=== PATIENT | female | born 1945 | race Caucasian/White ===

== ENCOUNTER 2023-05-21 12:47 | Inpatient (IN) | payer MEDICARE, OTHER ==
[~2023-05-21] VITALS: Ht 162.6 cm; Wt 76.7 kg
[2023-05-21] MEDS ORDERED: AVAPRO (13:20)
[2023-05-21] MEDS ORDERED: AMLODIPINE (13:20)
[2023-05-21 13:50] LABS: BASOPHILS # (AUTO) 0.1 K/UL (0.0-0.2); BASOPHILS % (AUTO) 0.5 % (0.0-2.0); EOSINOPHILS % (AUTO) 0.1 % (0.0-7.0); HEMATOCRIT 37.3 % (31.2-41.9); HEMOGLOBIN 11.7 g/dL (10.9-14.3); LYMPHOCYTES # (AUTO) 0.9 K/uL (0.8-4.8); LYMPHOCYTES % (AUTO) 8.4 % (20.5-51.5); MEAN CORPUSCULAR HEMOGLOBIN 20.3 uug (24.7-32.8); MEAN CORPUSCULAR HGB CONC 31 g/dL (32.3-35.6); MEAN CORPUSCULAR VOLUME 64.6 fL (75.5-95.3); MONOCYTES # (AUTO) 0.9 K/uL (0.1-1.30); MONOCYTES % (AUTO) 9.1 % (0.0-11.0); NEUTROPHILS # (AUTO) 8.5 K/uL (1.8-8.9); NEUTROPHILS % (AUTO) 81.9 % (38.5-71.5); PLATELET COUNT (AUTO) 223 K/uL (179-408); RED BLOOD CELL COUNT(AUTO) 5.78 MIL/uL (3.63-4.92); RED CELL DISTRIBUTION WIDTH 15.6 % (12.3-17.7); WHITE BLOOD COUNT (AUTO) 10.4 K/uL (3.8-11.8)
[2023-05-21 14:11] LABS: DIFFERENTIAL COMMENT 1
[2023-05-21 14:19] LABS: CALCIUM 9.6 mg/dL (8.5-10.1); CARBON DIOXIDE 22 mmol/L (21-32); CHLORIDE 102 mmol/L (98-107); CREATININE 0.8 mg/dL (0.6-1.3); GLUCOSE 102 mg/dL (74-106); POTASSIUM 3.8 mmol/L (3.5-5.1); SODIUM SERUM 137 mmol/L (136-145); UREA NITROGEN, BLOOD 15 mg/dL (7-18)
[2023-05-21 14:33] LABS: ALANINE AMINOTRANSFERASE 13 U/L (14-59); ALKALINE PHOSPHATASE 55 U/L (50-136); ASPARTATE AMINOTRANSFERASE 9 U/L (15-37); BILIRUBIN,DIRECT 0.2 mg/dL (0.0-0.2); BILIRUBIN,TOTAL 0.5 mg/dL (0.2-1.0); NT-PRO BNP 163 pg/mL (0-125); TOTAL PROTEIN, SERUM 8.4 g/dL (6.4-8.2)
[2023-05-21] MEDS ORDERED: ACETAMINOPHEN 325 MG TABLET PO ONE (15:30)
[2023-05-21] MEDS ORDERED: methylPREDNISolone SOD SUCC 125 MG/2 ML VIAL IV ONE (15:30)
[2023-05-21] MEDS ORDERED: methylPREDNISolone SOD SUCC 125 MG/2 ML VIAL ONE (15:40)
[2023-05-21] MEDS ORDERED: ACETAMINOPHEN 325 MG TABLET ONE (15:40)
[2023-05-21 16:59] LABS: *BILIRUBIN,URIN NEGATIVE (NEGATIVE); *CLARITY,URINE CLEAR (CLEAR); *COLOR,URINE YELLOW (YELLOW); *KETONES,URINE NEGATIVE (NEGATIVE); *PROTEIN,URINE 1+ (NEGATIVE); *UROBILINOGEN,URINE 0.2 E.U./dl (NORMAL); LEUKOCYTE ESTERASE ,URINE 1+ (NEGATIVE); NITRITE, URINE POSITIVE (NEGATIVE); UGLUCOSE NEGATIVE (NEGATIVE)
[2023-05-21 17:03] LABS: *BLOOD, URINE NEGATIVE (NEGATIVE)
[2023-05-21 17:04] LABS: BACTERIA,URINE FEW /HPF (NONE SEEN); RBC,URINE 0-3 /HPF (0-3)
[2023-05-21] MEDS ORDERED: ALBUTEROL SULFATE 2.5 MG/ 0.5 ML NEBU NEB PRN (19:30)
[2023-05-21] MEDS ORDERED: ONDANSETRON 4 MG/2 ML VIAL IV PRN (19:30)
[2023-05-21] MEDS ORDERED: IPRATROPIUM BROMIDE 0.5 MG/2.5 ML NEBU NEB PRN (19:30)
[2023-05-21] MEDS ORDERED: hydrALAZINE HCL 25 MG TABLET PO PRN (19:30)
[2023-05-21] MEDS ORDERED: CEFTRIAXONE /D5W 50ML IVPB **ER PYXIS IV ONE (20:16)
[2023-05-21] MEDS: CEFTRIAXONE 1 G in IV DEXTROSE 5% 50 ML IV SCH (20:17)
[2023-05-21] MEDS ORDERED: DOCUSATE SODIUM 100 MG CAPSULE PO ONE (21:24)
[2023-05-21] MEDS: DOCUSATE SODIUM 100 MG CAPSULE PO SCH (21:25)
[2023-05-21] MEDS ORDERED: AZITHROMYCIN 250 MG TABLET ONE (21:51)
[2023-05-21] MEDS: AZITHROMYCIN 250 MG TABLET PO SCH (21:52)
[2023-05-21 22:50] VITALS: BP 111/70; TEMP 98.4; O2SAT 99
[2023-05-22] VITALS: BP 130/72; TEMP 98.5; O2SAT 96
[2023-05-22] MEDS: ACETAMINOPHEN 325 MG TABLET PO PRN ×2 (00:03→15:23)
[2023-05-22 01:42] VITALS: O2SAT 96
[2023-05-22 04:00] VITALS: BP 117/69; TEMP 98; O2SAT 96
[2023-05-22] MEDS: PANTOPRAZOLE SODIUM 40 MG TABLET.DR PO SCH (06:07)
[2023-05-22 06:36] LABS: BASOPHILS % (AUTO) 0.1 % (0.0-2.0); HEMATOCRIT 35.6 % (31.2-41.9); HEMOGLOBIN 11.1 g/dL (10.9-14.3); LYMPHOCYTES # (AUTO) 0.7 K/uL (0.8-4.8); LYMPHOCYTES % (AUTO) 5.3 % (20.5-51.5); MEAN CORPUSCULAR HEMOGLOBIN 20.2 uug (24.7-32.8); MEAN CORPUSCULAR HGB CONC 31 g/dL (32.3-35.6); MEAN CORPUSCULAR VOLUME 64.9 fL (75.5-95.3); MONOCYTES # (AUTO) 0.8 K/uL (0.1-1.30); MONOCYTES % (AUTO) 5.6 % (0.0-11.0); NEUTROPHILS # (AUTO) 12.3 K/uL (1.8-8.9); PLATELET COUNT (AUTO) 210 K/uL (179-408); RED BLOOD CELL COUNT(AUTO) 5.48 MIL/uL (3.63-4.92); RED CELL DISTRIBUTION WIDTH 16.1 % (12.3-17.7); WHITE BLOOD COUNT (AUTO) 13.8 K/uL (3.8-11.8)
[2023-05-22 06:42] LABS: DIFFERENTIAL COMMENT 1
[2023-05-22 06:59] LABS: THYROID STIMULATING HORMONE 0.946 mIU/mL (0.358-3.740)
[2023-05-22 07:18] LABS: ALBUMIN 3.4 g/dL (3.4-5.0); BILIRUBIN,TOTAL 0.3 mg/dL (0.2-1.0); CREATININE 0.9 mg/dL (0.6-1.3); MAGNESIUM 2.5 mg/dL (1.8-2.4); PHOSPHOROUS 3.4 mg/dL (2.5-4.9); POTASSIUM 4.1 mmol/L (3.5-5.1); TOTAL PROTEIN, SERUM 7.9 g/dL (6.4-8.2)
[2023-05-22 07:46] LABS: CALCIUM 9.9 mg/dL (8.5-10.1)
[2023-05-22] MEDS: AMLODIPINE 5 MG TABLET PO SCH (09:00)
[2023-05-22] MEDS ORDERED: AMLO10TA59 PO (10:53)
[2023-05-22] MEDS ORDERED: CLOP75TA15 PO (10:53)
[2023-05-22] MEDS ORDERED: ROSU20TA2 PO (10:53)
[2023-05-22] MEDS ORDERED: IRBE300T19 PO (10:53)
[2023-05-22 20:15] VITALS: BP 119/54; TEMP 98.2; O2SAT 96
[2023-05-22] MEDS ORDERED: CEFTRIAXONE 1 G VIAL ONE (21:20)
[2023-05-22] MEDS: DOCUSATE SODIUM 100 MG CAPSULE PO SCH (21:44)
[2023-05-22] MEDS: AZITHROMYCIN 250 MG TABLET PO SCH (21:44)
[2023-05-22] MEDS: ATORVASTATIN 40 MG TABLET PO SCH (21:44)
[2023-05-22] MEDS: CEFTRIAXONE 1 G in IV DEXTROSE 5% 50 ML IV SCH (21:46)
[2023-05-23 04:10] VITALS: BP 119/74; TEMP 98.5; O2SAT 95
[2023-05-23] MEDS: PANTOPRAZOLE SODIUM 40 MG TABLET.DR PO SCH (06:13)
[2023-05-23 07:41] LABS: BASOPHILS % (AUTO) 0.3 % (0.0-2.0); EOSINOPHILS % (AUTO) 0.5 % (0.0-7.0); HEMATOCRIT 34.8 % (31.2-41.9); HEMOGLOBIN 10.9 g/dL (10.9-14.3); LYMPHOCYTES # (AUTO) 1.8 K/uL (0.8-4.8); LYMPHOCYTES % (AUTO) 17.3 % (20.5-51.5); MEAN CORPUSCULAR HEMOGLOBIN 20.4 uug (24.7-32.8); MEAN CORPUSCULAR HGB CONC 31 g/dL (32.3-35.6); MEAN CORPUSCULAR VOLUME 65.3 fL (75.5-95.3); MONOCYTES % (AUTO) 9.4 % (0.0-11.0); NEUTROPHILS # (AUTO) 7.6 K/uL (1.8-8.9); NEUTROPHILS % (AUTO) 72.5 % (38.5-71.5); PLATELET COUNT (AUTO) 213 K/uL (179-408); RED BLOOD CELL COUNT(AUTO) 5.33 MIL/uL (3.63-4.92); RED CELL DISTRIBUTION WIDTH 15.9 % (12.3-17.7); WHITE BLOOD COUNT (AUTO) 10.5 K/uL (3.8-11.8)
[2023-05-23 07:55] LABS: DIFFERENTIAL COMMENT 1
[2023-05-23 08:11] LABS: CALCIUM 9.4 mg/dL (8.5-10.1); CARBON DIOXIDE 25 mmol/L (21-32); CHLORIDE 106 mmol/L (98-107); CREATININE 0.9 mg/dL (0.6-1.3); GLUCOSE 108 mg/dL (74-106); MAGNESIUM 2.5 mg/dL (1.8-2.4); PHOSPHOROUS 3.2 mg/dL (2.5-4.9); SODIUM SERUM 139 mmol/L (136-145); UREA NITROGEN, BLOOD 19 mg/dL (7-18)
[2023-05-23] MEDS: CLOPIDOGREL 75 MG TABLET PO SCH (09:21)
[2023-05-23] MEDS: AMLODIPINE 5 MG TABLET PO SCH (09:21)
[2023-05-23] MEDS ORDERED: IPRATROPIUM BROMIDE 0.5 MG/2.5 ML NEBU NEB PRN (10:45)
[2023-05-23] MEDS ORDERED: ALBUTEROL SULFATE 2.5 MG/3 ML NEBU NEB PRN (10:45)
[2023-05-23 12:00] VITALS: BP 127/69; TEMP 98; O2SAT 95
[2023-05-23 16:08] VITALS: O2SAT 97
[2023-05-23 16:21] VITALS: BP 118/72; TEMP 97.8; O2SAT 96
[2023-05-23] MEDS: ACETAMINOPHEN 325 MG TABLET PO PRN (17:03)
[2023-05-23 20:00] VITALS: BP 141/73; TEMP 97.7; O2SAT 96
[2023-05-23] MEDS: CEFTRIAXONE 1 G in IV DEXTROSE 5% 50 ML IV SCH (20:19)
[2023-05-23] MEDS: AZITHROMYCIN 250 MG TABLET PO SCH (21:05)
[2023-05-23] MEDS: DOCUSATE SODIUM 100 MG CAPSULE PO SCH (21:05)
[2023-05-23] MEDS: ATORVASTATIN 40 MG TABLET PO SCH (21:05)
[2023-05-23 22:10] VITALS: O2SAT 96
[2023-05-24 04:15] VITALS: BP 148/73; TEMP 97.9; O2SAT 95
[2023-05-24] MEDS: PANTOPRAZOLE SODIUM 40 MG TABLET.DR PO SCH (06:09)
[2023-05-24 07:28] LABS: BASOPHILS % (AUTO) 0.3 % (0.0-2.0); EOSINOPHILS # (AUTO) 0.1 K/uL (0.0-0.7); EOSINOPHILS % (AUTO) 2.1 % (0.0-7.0); HEMATOCRIT 36.2 % (31.2-41.9); LYMPHOCYTES # (AUTO) 2.1 K/uL (0.8-4.8); LYMPHOCYTES % (AUTO) 29.5 % (20.5-51.5); MEAN CORPUSCULAR HGB CONC 31 g/dL (32.3-35.6); MEAN CORPUSCULAR VOLUME 65.8 fL (75.5-95.3); MONOCYTES # (AUTO) 0.7 K/uL (0.1-1.30); MONOCYTES % (AUTO) 9.9 % (0.0-11.0); NEUTROPHILS # (AUTO) 4.1 K/uL (1.8-8.9); NEUTROPHILS % (AUTO) 58.2 % (38.5-71.5); PLATELET COUNT (AUTO) 230 K/uL (179-408); RED BLOOD CELL COUNT(AUTO) 5.51 MIL/uL (3.63-4.92); RED CELL DISTRIBUTION WIDTH 16.1 % (12.3-17.7); WHITE BLOOD COUNT (AUTO) 7.1 K/uL (3.8-11.8)
[2023-05-24 07:31] LABS: DIFFERENTIAL COMMENT 1
[2023-05-24 08:05] LABS: CALCIUM 9.5 mg/dL (8.5-10.1); CARBON DIOXIDE 28 mmol/L (21-32); CHLORIDE 105 mmol/L (98-107); CREATININE 0.8 mg/dL (0.6-1.3); GLUCOSE 109 mg/dL (74-106); MAGNESIUM 2.4 mg/dL (1.8-2.4); PHOSPHOROUS 3.4 mg/dL (2.5-4.9); POTASSIUM 4.2 mmol/L (3.5-5.1); SODIUM SERUM 140 mmol/L (136-145); UREA NITROGEN, BLOOD 17 mg/dL (7-18)
[2023-05-24 09:39] VITALS: BP 132/76; TEMP 97.9; O2SAT 96
[2023-05-24 09:41] VITALS: BP 132/76
[2023-05-24] MEDS: CLOPIDOGREL 75 MG TABLET PO SCH (09:41)
[2023-05-24] MEDS: AMLODIPINE 5 MG TABLET PO SCH (09:41)
[2023-05-24] MEDS: ACETAMINOPHEN 325 MG TABLET PO PRN (09:59)
[2023-05-24] MEDS ORDERED: LEVO500T90 PO (12:11)
[2023-05-24] MEDS ORDERED: ENSURE ENLIVE (VAN) 240 ML LIQUID PO SCH (17:00)
== END 2023-05-24 14:30 | disposition home or self-care (01) | DRG 193 ==
LOC: ER 12:47 → TRANSITION 18:56 → TELE3 22:11 → MEDSURG3 05-22 18:29
PROVIDERS: ADMIT Internal Medicine; ATTEND Internal Medicine
DX: J18.9 Pneumonia, unspecified organism (principal); J96.01 Acute respiratory failure with hypoxia; N39.0 Urinary tract infection, site not specified; J12.1 Respiratory syncytial virus pneumonia; E66.9 Obesity, unspecified; Z68.29 Body mass index [BMI] 29.0-29.9, adult; D75.89 Other specified diseases of blood and blood-forming organs; E61.1 Iron deficiency; E78.5 Hyperlipidemia, unspecified; I70.0 Atherosclerosis of aorta; Z86.39 Personal history of other endocrine, nutritional and metabolic disease; I10 Essential (primary) hypertension; Z87.01 Personal history of pneumonia (recurrent); B96.20 Unspecified Escherichia coli [E. coli] as the cause of diseases classified elsewhere
CPT/HCPCS: 36415; 71045; 83550; 83605; 83735; 84100; 84443; 84484; 85025; 85730; 87040; 93005; 93307; A4606; A4663; G0378; J0696; J2930; Q0144

== ENCOUNTER 2024-03-26 20:23 | Inpatient (IN) | payer MEDICARE ==
[~2024-03-26] VITALS: Ht 162.6 cm; Wt 79.4 kg
[~2024-03-26 20:23] MED LIST: AMLO10TA59 PO; CLOP75TA15 PO; IRBE300T19 PO; LEVO500T90 PO; ROSU20TA2 PO
[2024-03-26] MEDS ORDERED: ONDANSETRON 4 MG/2 ML VIAL ONE (20:43)
[2024-03-26] MEDS: IV NORMAL SALINE 500 ML BAG IV ONE ×2 (20:45→21:40)
[2024-03-26] MEDS: ONDANSETRON 4 MG/2 ML VIAL IV ONE (20:53)
[2024-03-26 21:00] LABS: BASOPHILS % (AUTO) 0.4 % (0.0-2.0); EOSINOPHILS # (AUTO) 0.1 K/uL (0.0-0.7); EOSINOPHILS % (AUTO) 1.4 % (0.0-7.0); HEMATOCRIT 42.1 % (31.2-41.9); HEMOGLOBIN 13.3 g/dL (10.9-14.3); LYMPHOCYTES # (AUTO) 2.2 K/uL (0.8-4.8); MEAN CORPUSCULAR HEMOGLOBIN 20.2 uug (24.7-32.8); MEAN CORPUSCULAR HGB CONC 31 g/dL (32.3-35.6); MEAN CORPUSCULAR VOLUME 64.4 fL (75.5-95.3); MONOCYTES # (AUTO) 0.9 K/uL (0.1-1.30); MONOCYTES % (AUTO) 12.1 % (0.0-11.0); NEUTROPHILS # (AUTO) 4.5 K/uL (1.8-8.9); NEUTROPHILS % (AUTO) 58.1 % (38.5-71.5); PLATELET COUNT (AUTO) 197 K/uL (179-408); WHITE BLOOD COUNT (AUTO) 7.8 K/uL (3.8-11.8)
[2024-03-26 21:01] LABS: CALCIUM 9.9 mg/dL (8.5-10.1); CARBON DIOXIDE 25 mmol/L (21-32); CHLORIDE 103 mmol/L (98-107); CREATININE 0.8 mg/dL (0.6-1.3); GLUCOSE 125 mg/dL (74-106); POTASSIUM 3.3 mmol/L (3.5-5.1); SODIUM SERUM 141 mmol/L (136-145); UREA NITROGEN, BLOOD 19 mg/dL (7-18)
[2024-03-26 21:02] LABS: RED BLOOD CELL COUNT(AUTO) 6.54 MIL/uL (3.63-4.92)
[2024-03-26 21:07] LABS: ALANINE AMINOTRANSFERASE 36 U/L (14-59); ALBUMIN 3.8 g/dL (3.4-5.0); ALKALINE PHOSPHATASE 63 U/L (50-136); ASPARTATE AMINOTRANSFERASE 22 U/L (15-37); BILIRUBIN,TOTAL 0.3 mg/dL (0.2-1.0); C-REACTIVE PROTEIN 0.07 mg/dL (0.00-0.30); LIPASE 56 U/L (16-77); MAGNESIUM 1.9 mg/dL (1.8-2.4); TOTAL PROTEIN, SERUM 7.9 g/dL (6.4-8.2)
[2024-03-26] MEDS ORDERED: CEFEPIME HCL 1 G VIAL ONE (21:19)
[2024-03-26] MEDS: POTASSIUM CHLORIDE 50 ML IV SCH (21:28)
[2024-03-26] MEDS: CEFEPIME HCL 1 G in IV DEXTROSE 5% 50 ML IV ONE (21:28)
[2024-03-26] MEDS ORDERED: MORPHINE SULFATE 2 MG/1 ML DISP.SYRIN IVP PRN (21:45)
[2024-03-26] MEDS ORDERED: LOSA1TAB39 PO (21:54)
[2024-03-26] MEDS ORDERED: HYDR-894 PO (21:54)
[2024-03-26] MEDS: METRONIDAZOLE 500 MG/NS 100 ML PIGGYBACK IV ONE (21:57)
[2024-03-26] MEDS ORDERED: hydrALAZINE HCL 20 MG/1 ML VIAL ONE (23:21)
[2024-03-26] MEDS: IV NS 1000 ML 1,000 ML IV SCH (23:30)
[2024-03-26] MEDS: hydrALAZINE HCL 20 MG/1 ML VIAL IV PRN (23:37)
[2024-03-27] MEDS ORDERED: CEFEPIME HCL 1 G VIAL ONE (06:00)
[2024-03-27] MEDS: CEFEPIME HCL 2 GM in IV DEXTROSE 5% 100 ML IV SCH ×2 (06:16→18:22)
[2024-03-27] MEDS ORDERED: ONDANSETRON 4 MG/2 ML VIAL ONE (07:19)
[2024-03-27] MEDS: ONDANSETRON 4 MG/2 ML VIAL IV PRN (07:20)
[2024-03-27 08:23] LABS: BASOPHILS # (AUTO) 0.1 K/UL (0.0-0.2); BASOPHILS % (AUTO) 0.6 % (0.0-2.0); EOSINOPHILS % (AUTO) 0.2 % (0.0-7.0); HEMATOCRIT 40.3 % (31.2-41.9); HEMOGLOBIN 12.8 g/dL (10.9-14.3); LYMPHOCYTES # (AUTO) 1.1 K/uL (0.8-4.8); LYMPHOCYTES % (AUTO) 13.8 % (20.5-51.5); MEAN CORPUSCULAR HEMOGLOBIN 20.5 uug (24.7-32.8); MEAN CORPUSCULAR HGB CONC 32 g/dL (32.3-35.6); MEAN CORPUSCULAR VOLUME 64.9 fL (75.5-95.3); MONOCYTES # (AUTO) 0.7 K/uL (0.1-1.30); MONOCYTES % (AUTO) 8.7 % (0.0-11.0); NEUTROPHILS # (AUTO) 6.4 K/uL (1.8-8.9); NEUTROPHILS % (AUTO) 76.7 % (38.5-71.5); PLATELET COUNT (AUTO) 179 K/uL (179-408); RED BLOOD CELL COUNT(AUTO) 6.22 MIL/uL (3.63-4.92); RED CELL DISTRIBUTION WIDTH 15.3 % (12.3-17.7); WHITE BLOOD COUNT (AUTO) 8.4 K/uL (3.8-11.8)
[2024-03-27 08:27] LABS: DIFFERENTIAL COMMENT 1
[2024-03-27 08:38] LABS: ALANINE AMINOTRANSFERASE 28 U/L (14-59); ALBUMIN 3.6 g/dL (3.4-5.0); ALKALINE PHOSPHATASE 54 U/L (50-136); ASPARTATE AMINOTRANSFERASE 15 U/L (15-37); BILIRUBIN,TOTAL 0.5 mg/dL (0.2-1.0); CALCIUM 9.5 mg/dL (8.5-10.1); CARBON DIOXIDE 27 mmol/L (21-32); CHLORIDE 104 mmol/L (98-107); CREATININE 0.8 mg/dL (0.6-1.3); GLUCOSE 127 mg/dL (74-106); PHOSPHOROUS 4.6 mg/dL (2.5-4.9); POTASSIUM 3.7 mmol/L (3.5-5.1); SODIUM SERUM 140 mmol/L (136-145); TOTAL PROTEIN, SERUM 7.5 g/dL (6.4-8.2); UREA NITROGEN, BLOOD 14 mg/dL (7-18)
[2024-03-27] MEDS: LOSARTAN POTASSIUM 50 MG TABLET PO SCH (08:39)
[2024-03-27] MEDS: AMLODIPINE 10 MG TABLET PO SCH (08:40)
[2024-03-27] MEDS: ATORVASTATIN 40 MG TABLET PO SCH (08:40)
[2024-03-27] MEDS: DOCUSATE SODIUM 100 MG CAPSULE PO SCH (08:41)
[2024-03-27] MEDS: CLOPIDOGREL 75 MG TABLET PO SCH (08:43)
[2024-03-27] MEDS: HEPARIN SODIUM,PORCINE 5,000 UNITS/ML VIAL SQ SCH (08:44)
[2024-03-27] MEDS ORDERED: Medication Not On Formulary EA (Rosuvastatin Calcium (Crestor) 20 MG) PO SCH (09:00)
[2024-03-27] MEDS: ACETAMINOPHEN 325 MG TABLET PO PRN (09:00)
[2024-03-27 11:19] VITALS: BP 138/87; TEMP 98.4; O2SAT 94
[2024-03-27] MEDS: DICYCLOMINE HCL 10 MG CAPSULE PO SCH (12:40)
[2024-03-27 13:44] LABS: CALCIUM 9.5 mg/dL (8.5-10.1); CARBON DIOXIDE 28 mmol/L (21-32); CHLORIDE 102 mmol/L (98-107); CREATININE 0.8 mg/dL (0.6-1.3); GLUCOSE 150 mg/dL (74-106); POTASSIUM 3.3 mmol/L (3.5-5.1); SODIUM SERUM 138 mmol/L (136-145); UREA NITROGEN, BLOOD 13 mg/dL (7-18)
[2024-03-27] MEDS ORDERED: CEFEPIME HCL 2 GM in IV DEXTROSE 5% 100 ML IV SCH (14:00)
[2024-03-27 16:53] VITALS: BP 109/63; TEMP 98; O2SAT 94
[2024-03-27 20:00] VITALS: BP 116/66; TEMP 98.1; O2SAT 94
[2024-03-27 20:23] LABS: *BILIRUBIN,URIN NEGATIVE (NEGATIVE); *BLOOD, URINE NEGATIVE (NEGATIVE); *CLARITY,URINE CLEAR (CLEAR); *COLOR,URINE YELLOW (YELLOW); *KETONES,URINE NEGATIVE (NEGATIVE); *PROTEIN,URINE NEGATIVE (NEGATIVE); *UROBILINOGEN,URINE 0.2 E.U./dl (NORMAL); LEUKOCYTE ESTERASE ,URINE 1+ (NEGATIVE); NITRITE, URINE NEGATIVE (NEGATIVE); PH,URINE 6.5 (5.0-8.0); UGLUCOSE NEGATIVE (NEGATIVE)
[2024-03-27 20:33] LABS: BACTERIA,URINE NONE SEEN /HPF (NONE SEEN); RBC,URINE NONE SEEN /HPF (0-3); SQUAMOUS EPITHELIAL CELL,UR FEW /HPF (NONE SEEN); WBC,URINE 0-3 /HPF (0-3)
[2024-03-28 04:16] VITALS: O2SAT 98
[2024-03-28 07:05] LABS: BASOPHILS % (AUTO) 0.5 % (0.0-2.0); EOSINOPHILS # (AUTO) 0.1 K/uL (0.0-0.7); EOSINOPHILS % (AUTO) 2.6 % (0.0-7.0); HEMATOCRIT 36.7 % (31.2-41.9); HEMOGLOBIN 11.6 g/dL (10.9-14.3); LYMPHOCYTES # (AUTO) 1.6 K/uL (0.8-4.8); LYMPHOCYTES % (AUTO) 30.9 % (20.5-51.5); MEAN CORPUSCULAR HEMOGLOBIN 20.6 uug (24.7-32.8); MEAN CORPUSCULAR HGB CONC 32 g/dL (32.3-35.6); MEAN CORPUSCULAR VOLUME 64.9 fL (75.5-95.3); MONOCYTES # (AUTO) 0.6 K/uL (0.1-1.30); MONOCYTES % (AUTO) 11.6 % (0.0-11.0); NEUTROPHILS # (AUTO) 2.8 K/uL (1.8-8.9); NEUTROPHILS % (AUTO) 54.4 % (38.5-71.5); PLATELET COUNT (AUTO) 161 K/uL (179-408); RED BLOOD CELL COUNT(AUTO) 5.65 MIL/uL (3.63-4.92); RED CELL DISTRIBUTION WIDTH 15.2 % (12.3-17.7); WHITE BLOOD COUNT (AUTO) 5.1 K/uL (3.8-11.8)
[2024-03-28 07:15] LABS: CALCIUM 9.6 mg/dL (8.5-10.1); CARBON DIOXIDE 28 mmol/L (21-32); CHLORIDE 107 mmol/L (98-107); CREATININE 0.8 mg/dL (0.6-1.3); GLUCOSE 106 mg/dL (74-106); PHOSPHOROUS 2.9 mg/dL (2.5-4.9); POTASSIUM 3.2 mmol/L (3.5-5.1); SODIUM SERUM 141 mmol/L (136-145); UREA NITROGEN, BLOOD 10 mg/dL (7-18)
[2024-03-28 07:32] LABS: DIFFERENTIAL COMMENT 1
[2024-03-28 07:37] VITALS: BP 143/78; TEMP 99.5; O2SAT 96
[2024-03-28 11:10] VITALS: BP 143/77; TEMP 98; O2SAT 94
[2024-03-28 11:47] LABS: ANISOCYTOSIS 1+; EOSINOPHILS % (MANUAL) 3 % (0-8); HYPOCHROMASIA 2+; LYMPHOCYTES % (MANUAL) 24 % (20-40); MONOCYTES % (MANUAL) 18 % (2-10); NEUTROPHILS % (MANUAL) 55 % (42-75); PLATELET ESTIMATE DECREASED
[2024-03-28] MEDS ORDERED: AMOX-430 PO (13:14)
[2024-03-28] MEDS ORDERED: METR500T PO (13:14)
[2024-03-28] MEDS ORDERED: ONDA4TAB11 PO (13:14)
[2024-03-28] MEDS ORDERED: DICY10CA13 PO (13:14)
[2024-03-28] MEDS: POTASSIUM CHLORIDE 10 MEQ TAB.PRT.SR PO ONE (13:26)
== END 2024-03-28 14:15 | disposition home or self-care (01) | DRG 373 ==
LOC: ER 20:24 → TRANSITION 21:47 → MEDSURG3 23:47
PROVIDERS: ADMIT Internal Medicine; ATTEND Nurse Practitioner Family
DX: A04.9 Bacterial intestinal infection, unspecified (principal); E86.0 Dehydration; E87.6 Hypokalemia; R79.89 Other specified abnormal findings of blood chemistry; R73.9 Hyperglycemia, unspecified; K57.30 Diverticulosis of large intestine without perforation or abscess without bleeding; R91.8 Other nonspecific abnormal finding of lung field; J92.9 Pleural plaque without asbestos; Z79.02 Long term (current) use of antithrombotics/antiplatelets; I10 Essential (primary) hypertension; E78.5 Hyperlipidemia, unspecified; Z87.01 Personal history of pneumonia (recurrent); E66.9 Obesity, unspecified; Z68.30 Body mass index [BMI] 30.0-30.9, adult; Z79.899 Other long term (current) drug therapy
CPT/HCPCS: 36415; 70030-TC; 71045; 71250; 83605; 83690; 83735; 84100; 85025; 86140; 87040; A4606; A4663; G0378; J0360; J0692; J1644; J2405; J3480; J3490; J7040